=== PATIENT | female | born 1945 | race Caucasian/White ===

== ENCOUNTER 2016-07-16 08:38 | Inpatient (IN) | payer MEDICARE, BC ==
[~2016-07-16] VITALS: Ht 154.9 cm; Wt 85.9 kg
[~2016-07-16 08:38] MED LIST: ALLEGRA 60MG TA60 MG PO; AMLODIPINE5 MG PO; FOLIC ACID 40400 MCG PO; IRON TABLETS325 MG PO; LEVAQUIN 750MG750 MG PO; METRONIDAZOLE500 MG PO; NASACORT A55 MCG/ACT NS; NASACORT AQ N16.5 GM NS; NASONEX SPRAY; NASONEX SPRAY17 GM NS; PERCOCET 325 MG1 TA2 PO; POTASSIUM CH2 MEQ/ML PO; PRILOSEC20 MG PO; PROAIR INH; RT MAXAIR INH25.6 GM; SINGULAIR 110 MG/TAB PO; VITAMIN C500 MG PO; ZOLOFT 50MG50 MG PO; [UNRECOGNIZED DRUG - OTHER] IH
[2016-09-15] MEDS ORDERED: NORVASC 5MG5 MG/TAB PO (12:46)
[2016-09-15] MEDS ORDERED: EFFER-K20 MEQ PO (12:47)
[2016-09-15] MEDS ORDERED: CLARITIN 1010 MG/TAB PO (12:47)
[2016-09-15] MEDS ORDERED: FLONASE NASAL S16 GM NS (12:47)
[2016-09-15] MEDS ORDERED: ASPI325T6 PO (12:47)
[2016-09-15] MEDS ORDERED: SINGULAIR 110 MG/TAB PO (12:48)
[2016-09-15] MEDS ORDERED: METAMUCIL3.4 GM/DOS PO (12:48)
[2016-09-15] MEDS ORDERED: PRILOSEC 20MG20 MG PO (12:48)
[2016-09-15] MEDS ORDERED: FLOVENT 110MCG7.9 GM IH (12:49)
[2016-09-15] MEDS ORDERED: ZOLOFT 50MG50 MG PO (12:49)
[2016-09-15] MEDS ORDERED: VITAMIN C500 MG PO (12:50)
[2016-09-15] MEDS ORDERED: FERROUS SU325 MG/TAB PO (12:50)
[2016-09-16] VITALS (12 sets, daily range): BP systolic 101–147; BP diastolic 47–75; PULSE 45–74; TEMP 97.4–98
[2016-09-17 04:02] VITALS: BP 161/61; PULSE 55; TEMP 98.4
[2016-09-17 07:25] VITALS: BP 146/60; PULSE 50; TEMP 97.4
[2016-09-17 07:52] LABS: HEMATOCRIT 41.8 % (37.0-47.0); HEMOGLOBIN 14.1 g/dl (12.5-16.0)
[2016-09-17 11:48] VITALS: BP 143/60; PULSE 53; TEMP 97.9
[2016-09-17 15:39] VITALS: BP 147/69; PULSE 56
[2016-09-17 20:27] VITALS: BP 152/64; PULSE 61; TEMP 98.5
[2016-09-17 23:04] VITALS: BP 137/56; PULSE 55; TEMP 98
[2016-09-18 03:31] VITALS: BP 159/69; PULSE 63; TEMP 98.1
[2016-09-18 06:02] LABS: HEMATOCRIT 43.2 % (37.0-47.0); HEMOGLOBIN 14.5 g/dl (12.5-16.0)
[2016-09-18 07:24] VITALS: BP 148/63; PULSE 60; TEMP 98.6
[2016-09-18] MEDS ORDERED: ASPIRIN 32325 MG/TAB PO (12:38)
[2016-09-18] MEDS ORDERED: NORCO 325 MG-7.1 TAB PO (12:39)
[2016-09-18] MEDS ORDERED: ROXICODONE 55 MG/TAB PO (12:40)
[2016-09-18 12:45] VITALS: BP 138/84; BP 141/47; PULSE 70; PULSE 706; TEMP 97.8; TEMP 98.3
== END 2016-09-18 13:50 | disposition home or self-care (01) | DRG 470 ==
LOC: JCC 09-16 05:02
PROVIDERS: Orthopaedic Surgery
PROC: 0SRC0J9 Replacement of Right Knee Joint with Synthetic Substitute, Cemented, Open Approach (ICD-10-PCS; principal; 2016-09-16 08:45)
DX: M17.11 Unilateral primary osteoarthritis, right knee (principal); E11.9 Type 2 diabetes mellitus without complications; I10 Essential (primary) hypertension
CPT/HCPCS: A4315; A9284; C1713; C1776; J0690; J1100; J2250; J2405; J2704; J3010; J7120

== ENCOUNTER → 2016-09-09 | Outpatient (CLI) | payer MEDICARE, BC ==
[~2016-09-09] MED LIST changes: +ASPI325T6 PO; +ASPIRIN 32325 MG/TAB PO; +CLARITIN 1010 MG/TAB PO; +EFFER-K20 MEQ PO; +FERROUS SU325 MG/TAB PO; +FLONASE NASAL S16 GM NS; +FLOVENT 110MCG7.9 GM IH; +METAMUCIL3.4 GM/DOS PO; +NORCO 325 MG-7.1 TAB PO; +NORVASC 5MG5 MG/TAB PO; +PRILOSEC 20MG20 MG PO; +ROXICODONE 55 MG/TAB PO
[2016-09-09 18:43] LABS: HIV 1/2 Antibodies Non-Reactive; HIV-1p24 Antigen Non-Reactive
== END ==
LOC: COL.LAB 17:23
PROVIDERS: Orthopaedic Surgery
DX: Z01.812 Encounter for preprocedural laboratory examination (principal)

== ENCOUNTER → 2016-09-11 | Outpatient (CLI) | payer MEDICARE, BC | LOC: COL.VAS 14:17 | DX: Z01.810 Encounter for preprocedural cardiovascular examination (principal); I35.1 Nonrheumatic aortic (valve) insufficiency ==

== ENCOUNTER 2016-09-12 12:55 | Outpatient (RCR) | payer MEDICARE, BC ==
[~2016-09-12 12:55] MED LIST changes: -ASPI325T6 PO; -ASPIRIN 32325 MG/TAB PO; -CLARITIN 1010 MG/TAB PO; -EFFER-K20 MEQ PO; -FERROUS SU325 MG/TAB PO; -FLONASE NASAL S16 GM NS; -FLOVENT 110MCG7.9 GM IH; -METAMUCIL3.4 GM/DOS PO; -NORCO 325 MG-7.1 TAB PO; -NORVASC 5MG5 MG/TAB PO; -PRILOSEC 20MG20 MG PO; -ROXICODONE 55 MG/TAB PO
[2016-09-15] MEDS ORDERED: NORVASC 5MG5 MG/TAB PO (12:46)
[2016-09-15] MEDS ORDERED: EFFER-K20 MEQ PO (12:47)
[2016-09-15] MEDS ORDERED: ASPI325T6 PO (12:47)
[2016-09-15] MEDS ORDERED: FLONASE NASAL S16 GM NS (12:47)
[2016-09-15] MEDS ORDERED: CLARITIN 1010 MG/TAB PO (12:47)
[2016-09-15] MEDS ORDERED: PRILOSEC 20MG20 MG PO (12:48)
[2016-09-15] MEDS ORDERED: SINGULAIR 110 MG/TAB PO (12:48)
[2016-09-15] MEDS ORDERED: METAMUCIL3.4 GM/DOS PO (12:48)
[2016-09-15] MEDS ORDERED: ZOLOFT 50MG50 MG PO (12:49)
[2016-09-15] MEDS ORDERED: FLOVENT 110MCG7.9 GM IH (12:49)
[2016-09-15] MEDS ORDERED: VITAMIN C500 MG PO (12:50)
[2016-09-15] MEDS ORDERED: FERROUS SU325 MG/TAB PO (12:50)
== END 2016-09-15 13:18 | disposition home or self-care (01) ==
LOC: MKS.ESL.PT 12:55
DX: Z47.1 Aftercare following joint replacement surgery (principal); M25.861 Other specified joint disorders, right knee
CPT/HCPCS: G8978-GP; G8979-GP; G8980-GP

== ENCOUNTER 2016-12-17 15:00 | Outpatient (RCR) | payer MEDICARE, BC ==
[~2016-12-17 15:00] MED LIST changes: +ASPI325T6 PO; +ASPIRIN 32325 MG/TAB PO; +CLARITIN 1010 MG/TAB PO; +EFFER-K20 MEQ PO; +FERROUS SU325 MG/TAB PO; +FLONASE NASAL S16 GM NS; +FLOVENT 110MCG7.9 GM IH; +METAMUCIL3.4 GM/DOS PO; +NORCO 325 MG-7.1 TAB PO; +NORVASC 5MG5 MG/TAB PO; +PRILOSEC 20MG20 MG PO; +ROXICODONE 55 MG/TAB PO
== END 2016-12-18 13:59 ==
LOC: MKS.ESL.PT 15:00
DX: Z47.1 Aftercare following joint replacement surgery (principal); M25.861 Other specified joint disorders, right knee
CPT/HCPCS: G8978-GP; G8979-GP; G8980-GP

== ENCOUNTER 2017-05-10 18:20 | Inpatient (IN) | payer MEDICARE, BC ==
[~2017-05-10] VITALS: Ht 154.9 cm; Wt 87.7 kg
[2017-05-10 19:20] LABS: HEMATOCRIT 43.7 % (37.0-47.0); HEMOGLOBIN 15.1 g/dl (12.5-16.0); MEAN CELL VOLUME 89 fl (80.0-100.0); MEAN CORPUSCULAR HEMOGLOBIN 31 pg (27.0-31.0); MEAN CORPUSCULAR HGB CONC 35 g/dl (33.0-37.0); MEAN PLATELET VOLUME 11.8 fl (7.4-10.4); PLATELET COUNT 266 K/mm3 (130-400); RED BLOOD COUNT 4.94 M/mm3 (4.10-5.30); WHITE BLOOD COUNT 19.5 K/mm3 (4.8-10.8)
[2017-05-10 19:25] LABS: ADD PATHOLOGY DIFF REVIEW NO
[2017-05-10 19:33] LABS: ADJUSTED CALCIUM 9.4 mg/dL (8.4-10.2); ALBUMIN 3.8 gm/dL (3.5-5.0); BILIRUBIN,TOTAL 1.5 mg/dL (0.0-1.0); CALCIUM 9.2 mg/dL (8.4-10.2); CREATININE, serum 0.75 mg/dL (0.52-1.25); POTASSIUM 3.3 mmol/L (3.4-5.0); TOTAL PROTEIN 6.8 gm/dL (6.4-8.2)
[2017-05-10 19:37] LABS: INFLUENZA A NEGATIVE; INFLUENZA B NEGATIVE
[2017-05-10 19:43] LABS: BAND 9 % (0-10); BASOPHIL 1 % (0-2); LYMPHOCYTE 10 % (20.0-51.0); NEUTROPHILS 65 % (42.0-75.2); PLATELET ESTIMATE NORMAL (NORMAL); TOTAL CELLS COUNTED 100
[2017-05-10 19:49] LABS: C-REACTIVE PROTEIN 25.9 mg/dL (0.0-0.9)
[2017-05-10 22:13] VITALS: BP 125/69; PULSE 78; TEMP 99.3
[2017-05-11] VITALS (7 sets, daily range): BP systolic 112–144; BP diastolic 47–77; PULSE 72–110; TEMP 97.3–98.7
[2017-05-11 06:13] LABS: BASO # 0.1 (0.0-0.2); BASO % 0.5 % (0.0-2.0); GRAN # 13.2 (1.4-6.5); GRAN % 88.6 % (42.2-75.2); HEMATOCRIT 39.5 % (37.0-47.0); HEMOGLOBIN 13.4 g/dl (12.5-16.0); LYMPH # 1.1 (1.2-3.4); LYMPH % 7.3 % (20.0-51.0); MEAN CELL VOLUME 89 fl (80.0-100.0); MEAN CORPUSCULAR HEMOGLOBIN 30 pg (27.0-31.0); MEAN CORPUSCULAR HGB CONC 34 g/dl (33.0-37.0); MEAN PLATELET VOLUME 11.3 fl (7.4-10.4); MONO # 0.4 (0.1-0.6); MONO % 2.7 % (1.7-9.3); PLATELET COUNT 260 K/mm3 (130-400); RED BLOOD COUNT 4.45 M/mm3 (4.10-5.30); WHITE BLOOD COUNT 14.9 K/mm3 (4.8-10.8)
[2017-05-11 06:28] LABS: CALCIUM 8.8 mg/dL (8.4-10.2); CHOLESTEROL RISK RATIO 5.4; CREATININE, serum 0.65 mg/dL (0.52-1.25)
[2017-05-11 06:30] LABS: POTASSIUM 2.8 mmol/L (3.4-5.0)
[2017-05-11 09:29] LABS: PH 6 (5-8); SQUAMOUS EPITHELIAL 0-2 /hpf; URINE APPEARANCE Clear; URINE BACTERIA Rare /hpf; URINE BILIRUBIN Negative (NEGATIVE); URINE BLOOD 3+ (NEGATIVE); URINE COLOR Straw; URINE GLUCOSE 2+ (NEGATIVE); URINE KETONE Negative (NEGATIVE); URINE LEUKOCYTE ESTERASE Negative (NEGATIVE); URINE PROTEIN(semi-quant) Negative (NEGATIVE); URINE UROBILINOGEN Negative (NEGATIVE)
[2017-05-11 09:32] LABS: COLLECTION METHOD CLEAN CATCH
[2017-05-12 00:04] VITALS: BP 151/80; PULSE 82; TEMP 98.8
[2017-05-12 04:01] VITALS: BP 169/78; PULSE 96; TEMP 98.3
[2017-05-12 06:44] LABS: HEMATOCRIT 40.3 % (37.0-47.0); HEMOGLOBIN 13.4 g/dl (12.5-16.0); MEAN CELL VOLUME 89 fl (80.0-100.0); MEAN CORPUSCULAR HEMOGLOBIN 30 pg (27.0-31.0); MEAN CORPUSCULAR HGB CONC 33 g/dl (33.0-37.0); MEAN PLATELET VOLUME 12.4 fl (7.4-10.4); PLATELET COUNT 312 K/mm3 (130-400); RED BLOOD COUNT 4.52 M/mm3 (4.10-5.30)
[2017-05-12 06:50] LABS: ADD PATHOLOGY DIFF REVIEW NO; WHITE BLOOD COUNT 21.3 K/mm3 (4.8-10.8)
[2017-05-12 06:53] LABS: CALCIUM 9.3 mg/dL (8.4-10.2); CREATININE, serum 0.64 mg/dL (0.52-1.25); POTASSIUM 4.1 mmol/L (3.4-5.0)
[2017-05-12 07:20] VITALS: BP 129/88; PULSE 108; TEMP 98.6
[2017-05-12 07:56] LABS: BAND 21 % (0-10); LYMPHOCYTE 15 % (20.0-51.0); NEUTROPHILS 60 % (42.0-75.2); PLATELET ESTIMATE NORMAL (NORMAL); TOTAL CELLS COUNTED 100
[2017-05-12 11:29] VITALS: BP 141/81; PULSE 98; TEMP 97.7
[2017-05-12 15:33] VITALS: BP 147/77; PULSE 120; TEMP 97.5
[2017-05-12 19:39] VITALS: BP 160/85; PULSE 108; TEMP 98
[2017-05-13] VITALS (7 sets, daily range): BP systolic 140–178; BP diastolic 78–95; PULSE 93–119; TEMP 97.8–98.7
[2017-05-13 06:51] LABS: HEMATOCRIT 41.6 % (37.0-47.0); HEMOGLOBIN 14.1 g/dl (12.5-16.0); MEAN CELL VOLUME 89 fl (80.0-100.0); MEAN CORPUSCULAR HEMOGLOBIN 30 pg (27.0-31.0); MEAN CORPUSCULAR HGB CONC 34 g/dl (33.0-37.0); MEAN PLATELET VOLUME 11.5 fl (7.4-10.4); PLATELET COUNT 366 K/mm3 (130-400); WHITE BLOOD COUNT 19.8 K/mm3 (4.8-10.8)
[2017-05-13 07:04] LABS: CREATININE, serum 0.64 mg/dL (0.52-1.25); POTASSIUM 3.4 mmol/L (3.4-5.0)
[2017-05-13 07:41] LABS: BAND 6 % (0-10); LYMPHOCYTE 17 % (20.0-51.0); MYELOCYTE 2 % (0-0); NEUTROPHILS 68 % (42.0-75.2); PLATELET ESTIMATE NORMAL (NORMAL); TOTAL CELLS COUNTED 100
[2017-05-13 07:42] LABS: HYPOCHROMIA 1+
[2017-05-13 07:43] LABS: ADD PATHOLOGY DIFF REVIEW YES
[2017-05-13 08:11] LABS: PATHOLOGY DIFF REVIEW OK +
[2017-05-13 09:31] LABS: TSH w REFLEX 0.353 uIU/mL (0.465-4.680)
[2017-05-14 03:07] VITALS: BP 146/72; PULSE 85; TEMP 98.7
[2017-05-14 07:03] LABS: HEMATOCRIT 43.2 % (37.0-47.0); HEMOGLOBIN 14.3 g/dl (12.5-16.0); MEAN CELL VOLUME 90 fl (80.0-100.0); MEAN CORPUSCULAR HEMOGLOBIN 30 pg (27.0-31.0); MEAN CORPUSCULAR HGB CONC 33 g/dl (33.0-37.0); MEAN PLATELET VOLUME 11.4 fl (7.4-10.4); PLATELET COUNT 349 K/mm3 (130-400)
[2017-05-14 07:06] LABS: ADD PATHOLOGY DIFF REVIEW NO; WHITE BLOOD COUNT 23.1 K/mm3 (4.8-10.8)
[2017-05-14 07:10] LABS: CALCIUM 9.1 mg/dL (8.4-10.2); CREATININE, serum 0.77 mg/dL (0.52-1.25); POTASSIUM 3.9 mmol/L (3.4-5.0)
[2017-05-14 07:48] VITALS: BP 146/77; PULSE 80; TEMP 98.2
[2017-05-14 10:34] LABS: BAND 31 % (0-10); LYMPHOCYTE 34 % (20.0-51.0); METAMYELOCYTE 3 % (0-0); MYELOCYTE 3 % (0-0); NEUTROPHILS 27 % (42.0-75.2); PLATELET ESTIMATE INCREASED (NORMAL); TOTAL CELLS COUNTED 100
[2017-05-14 11:47] VITALS: BP 149/79; BP 149/99; PULSE 106; TEMP 97.9
[2017-05-14 11:58] LABS: MUCOUS Present /lpf; PH 6 (5-8); SQUAMOUS EPITHELIAL 0-2 /hpf; URINE APPEARANCE Clear; URINE BACTERIA Rare /hpf; URINE BILIRUBIN Negative (NEGATIVE); URINE BLOOD 2+ (NEGATIVE); URINE COLOR Yellow; URINE GLUCOSE Negative (NEGATIVE); URINE KETONE Negative (NEGATIVE); URINE LEUKOCYTE ESTERASE Negative (NEGATIVE); URINE PROTEIN(semi-quant) Negative (NEGATIVE); URINE UROBILINOGEN Negative (NEGATIVE); URINE WBC 0-2 /hpf
[2017-05-14 12:26] LABS: COLLECTION METHOD CLEAN CATCH
[2017-05-14 15:22] VITALS: BP 144/77; PULSE 103; TEMP 98.7
[2017-05-14 17:18] LABS: ARTERIAL BLD GAS O2 SATURATION 92.7 % (92-100); ARTERIAL BLD GAS TCO2 CT 25.4; ARTERIAL BLOOD GAS BASE EXCESS 1.9 (-2-2); ARTERIAL BLOOD GAS HCO3 24.4 meq/L (22-26); ARTERIAL BLOOD GAS PO2 65.1 mmHg (80-100); ARTERIAL BLOOD GAS pH 7.49 (7.35-7.45); OXYHEMOGLOBIN 92.1 %
[2017-05-14 17:19] LABS: ALLEN TEST YES; ALLENS TEST RESULT PASS; ATS? YES
[2017-05-14 19:59] VITALS: BP 139/87; PULSE 97; TEMP 97.9
[2017-05-14 23:43] VITALS: BP 152/73; PULSE 51; TEMP 98
[2017-05-15 04:38] VITALS: BP 169/87; PULSE 70; TEMP 98.2
[2017-05-15 08:08] LABS: HEMATOCRIT 44.6 % (37.0-47.0); HEMOGLOBIN 14.9 g/dl (12.5-16.0); MEAN CELL VOLUME 91 fl (80.0-100.0); MEAN CORPUSCULAR HEMOGLOBIN 30 pg (27.0-31.0); MEAN CORPUSCULAR HGB CONC 33 g/dl (33.0-37.0); MEAN PLATELET VOLUME 11.6 fl (7.4-10.4); PLATELET COUNT 344 K/mm3 (130-400); RED BLOOD COUNT 4.92 M/mm3 (4.10-5.30)
[2017-05-15 08:09] VITALS: BP 126/56; PULSE 86; TEMP 98.2
[2017-05-15 08:10] LABS: WHITE BLOOD COUNT 22.8 K/mm3 (4.8-10.8)
[2017-05-15 08:11] LABS: ADD PATHOLOGY DIFF REVIEW NO
[2017-05-15 08:16] LABS: CALCIUM 8.8 mg/dL (8.4-10.2); CREATININE, serum 0.81 mg/dL (0.52-1.25); POTASSIUM 3.9 mmol/L (3.4-5.0)
[2017-05-15 08:31] LABS: BAND 7 % (0-10); LYMPHOCYTE 31 % (20.0-51.0); METAMYELOCYTE 3 % (0-0); NEUTROPHILS 50 % (42.0-75.2)
[2017-05-15 08:32] LABS: PLATELET ESTIMATE NORMAL (NORMAL); TOTAL CELLS COUNTED 100
[2017-05-15 11:51] VITALS: BP 126/90; PULSE 108; TEMP 98.4
[2017-05-15 16:13] VITALS: BP 135/76; PULSE 100; TEMP 98.1
[2017-05-15 19:48] VITALS: BP 144/63; PULSE 90; TEMP 98.5
[2017-05-16] VITALS (7 sets, daily range): BP systolic 134–174; BP diastolic 72–84; PULSE 80–98; TEMP 97.5–99.4
[2017-05-16 06:17] LABS: HEMATOCRIT 43.1 % (37.0-47.0); HEMOGLOBIN 14.3 g/dl (12.5-16.0); MEAN CELL VOLUME 90 fl (80.0-100.0); MEAN CORPUSCULAR HEMOGLOBIN 30 pg (27.0-31.0); MEAN CORPUSCULAR HGB CONC 33 g/dl (33.0-37.0); MEAN PLATELET VOLUME 11.2 fl (7.4-10.4); PLATELET COUNT 302 K/mm3 (130-400); RED BLOOD COUNT 4.81 M/mm3 (4.10-5.30)
[2017-05-16 06:25] LABS: ADD PATHOLOGY DIFF REVIEW NO; WHITE BLOOD COUNT 20.2 K/mm3 (4.8-10.8)
[2017-05-16 06:28] LABS: CALCIUM 8.3 mg/dL (8.4-10.2); CREATININE, serum 0.77 mg/dL (0.52-1.25); POTASSIUM 3.3 mmol/L (3.4-5.0)
[2017-05-16 07:02] LABS: BAND 3 % (0-10); EOSINOPHIL 1 % (0-4); LYMPHOCYTE 36 % (20.0-51.0); NEUTROPHILS 57 % (42.0-75.2); PLATELET ESTIMATE NORMAL (NORMAL); TOTAL CELLS COUNTED 100
[2017-05-16 07:04] LABS: TOXIC GRANULATION PRESENT
[2017-05-17] VITALS (7 sets, daily range): BP systolic 130–161; BP diastolic 67–90; PULSE 61–98; TEMP 97.4–98.7
[2017-05-17 11:32] LABS: HEMATOCRIT 44.1 % (37.0-47.0); HEMOGLOBIN 14.6 g/dl (12.5-16.0); MEAN CELL VOLUME 91 fl (80.0-100.0); MEAN CORPUSCULAR HEMOGLOBIN 30 pg (27.0-31.0); MEAN CORPUSCULAR HGB CONC 33 g/dl (33.0-37.0); MEAN PLATELET VOLUME 11.1 fl (7.4-10.4); PLATELET COUNT 288 K/mm3 (130-400); RED BLOOD COUNT 4.86 M/mm3 (4.10-5.30); WHITE BLOOD COUNT 18.6 K/mm3 (4.8-10.8)
[2017-05-17 11:34] LABS: ADD PATHOLOGY DIFF REVIEW NO
[2017-05-17 12:03] LABS: BAND 4 % (0-10); EOSINOPHIL 2 % (0-4); LYMPHOCYTE 23 % (20.0-51.0); METAMYELOCYTE 1 % (0-0); NEUTROPHILS 68 % (42.0-75.2); PLATELET ESTIMATE NORMAL (NORMAL); TOTAL CELLS COUNTED 100
[2017-05-18 03:43] VITALS: BP 119/68; PULSE 74; TEMP 99.1
[2017-05-18 07:22] LABS: TROPONIN-I < 0.012 ng/mL (0.000-0.034)
[2017-05-18 08:00] VITALS: BP 130/74; PULSE 75; TEMP 98.6
[2017-05-18 08:49] LABS: HEMATOCRIT 44.2 % (37.0-47.0); HEMOGLOBIN 14.3 g/dl (12.5-16.0); MEAN CELL VOLUME 92 fl (80.0-100.0); MEAN CORPUSCULAR HEMOGLOBIN 30 pg (27.0-31.0); MEAN CORPUSCULAR HGB CONC 32 g/dl (33.0-37.0); MEAN PLATELET VOLUME 11.4 fl (7.4-10.4); PLATELET COUNT 239 K/mm3 (130-400); RED BLOOD COUNT 4.82 M/mm3 (4.10-5.30); WHITE BLOOD COUNT 17.4 K/mm3 (4.8-10.8)
[2017-05-18 08:55] LABS: ADD PATHOLOGY DIFF REVIEW NO
[2017-05-18] MEDS ORDERED: CEFTIN500 MG PO (10:02)
[2017-05-18] MEDS ORDERED: PROAIR HFA0.09 MG/AC IH (10:03)
[2017-05-18] MEDS ORDERED: MUCINEX DM 30 M1 TE1 PO (10:04)
[2017-05-18 10:18] LABS: BAND 14 % (0-10); EOSINOPHIL 3 % (0-4); LYMPHOCYTE 28 % (20.0-51.0); NEUTROPHILS 46 % (42.0-75.2); TOTAL CELLS COUNTED 100
[2017-05-18 10:19] LABS: PLATELET ESTIMATE NORMAL (NORMAL)
[2017-05-18 10:20] LABS: TOXIC GRANULATION PRESENT
[2017-05-18 11:14] VITALS: BP 113/65; PULSE 73; TEMP 98.4
[2017-05-18] MEDS ORDERED: MEDROL 4MG DOSPA4 MG PO (13:50)
== END 2017-05-18 14:53 | disposition home or self-care (01) | DRG 872 ==
LOC: COL.ER 18:20 → MEDICAL 19:53
PROVIDERS: Emergency Medicine; Internal Medicine; Nurse Practitioner; Nurse Practitioner Family; Physician Assistant
DX: A41.89 Other specified sepsis (principal); F05 Delirium due to known physiological condition; R44.0 Auditory hallucinations; J45.901 Unspecified asthma with (acute) exacerbation; I47.1 Supraventricular tachycardia; J01.90 Acute sinusitis, unspecified; I10 Essential (primary) hypertension; Z87.891 Personal history of nicotine dependence; E87.6 Hypokalemia; R44.1 Visual hallucinations; B34.8 Other viral infections of unspecified site; E11.65 Type 2 diabetes mellitus with hyperglycemia; I27.20 Pulmonary hypertension, unspecified; B97.4 Respiratory syncytial virus as the cause of diseases classified elsewhere; Z77.22 Contact with and (suspected) exposure to environmental tobacco smoke (acute) (chronic)
CPT/HCPCS: 99222-AI; 99231-AI; 99232-AI; 99233-AI; 99239; A9585; J0696; J1650; J1815; J1956; J2930; J7030; J7512

== ENCOUNTER → 2017-05-20 | Outpatient (CLI) | payer MEDICARE, BC ==
[~2017-05-20] MED LIST changes: +CEFTIN500 MG PO; +MEDROL 4MG DOSPA4 MG PO; +MUCINEX DM 30 M1 TE1 PO; +PROAIR HFA0.09 MG/AC IH
== END ==
LOC: COL.RAD 11:49
DX: E05.90 Thyrotoxicosis, unspecified without thyrotoxic crisis or storm (principal)
CPT/HCPCS: A9516

== ENCOUNTER → 2021-05-07 | Outpatient (CLI) | payer MEDICARE, BC | LOC: MC.RAD 15:30 | DX: Z12.31 Encounter for screening mammogram for malignant neoplasm of breast (principal); R92.0 Mammographic microcalcification found on diagnostic imaging of breast ==

== ENCOUNTER → 2021-05-17 | Outpatient (CLI) | payer MEDICARE, BC | LOC: MC.RAD 12:46 | DX: R92.0 Mammographic microcalcification found on diagnostic imaging of breast (principal) ==

== ENCOUNTER → 2023-12-09 | Outpatient (CLI) | payer MEDICARE, BC | LOC: COL.RAD 12:32 | DX: E04.1 Nontoxic single thyroid nodule (principal) ==